=== PATIENT | female | born 1990 | race American Indian/Alaskan Native ===

== ENCOUNTER 2019-05-28 23:15 | Emergency (ER) | payer MEDICAID ==
[2019-05-28 23:39] VITALS: BP 130/85
[2019-05-29] MEDS ORDERED: ZOFRAN ODT PO ONE (02:14)
[2019-05-29] MEDS ORDERED: NORCO 5/325 PO ONE (02:14)
--- NOTE | 2019-05-29 02:14 | Emergency Department Report ---
ED General Adult HPI - General Chief complaint: Laceration/Recheck/Suture Stated complaint: INCISION WAS LEAKING PUS/PAIN FROM C SECTION Time Seen by Provider: 05/29/19 02:11 Source: patient Mode of arrival: Ambulatory Limitations: No Limitations - History of Present Illness Initial comments: Patient presents to emergency department with concern of infection versus section wound. Patient had a on the third of this month and states she's had some drainage from the wound. Patient denies fever but does endorse abdominal pain status post a procedure. Patient is out of her pain medication at home. -: Gradual Location: abdomen Severity scale (0 -10): 4 Quality: aching Consistency: constant Improves with: rest Worsens with: movement Associated Symptoms: denies other symptoms Treatments Prior to Arrival: none - Related Data Previous Rx's Medication Instructions Recorded Last Taken Type HYDROcodone/APAP 5-325 [[place] 1 each PO Q6HR PRN #12 tablet 05/29/19 Unknown Rx 5/325] Allergies Allergy/AdvReac Type Severity Reaction Status Date / Time No Known Allergies Allergy Verified 10/23/13 06:45 ED Review of Systems ROS: Stated complaint: INCISION WAS LEAKING PUS/PAIN FROM C SECTION Other details as noted in HPI Comment: All other systems reviewed and negative Constitutional: denies: chills, fever Eyes: denies: eye pain, eye discharge, vision change ENT: denies: ear pain, throat pain Respiratory: denies: cough, shortness of breath, wheezing Cardiovascular: denies: chest pain, palpitations Endocrine: no symptoms reported Gastrointestinal: denies: abdominal pain, nausea, diarrhea Genitourinary: denies: urgency, dysuria, discharge Musculoskeletal: denies: back pain, joint swelling, arthralgia Skin: denies: rash, lesions Neurological: denies: headache, weakness, paresthesias Psychiatric: denies: anxiety, depression Hematological/Lymphatic: denies: easy bleeding, easy bruising ED Past Medical Hx - Past Medical History Previous Medical History?: No - Surgical History Past Surgical History?: Yes Additional Surgical History: c section X 3 - Social History Smoking Status: Current Every Day Smoker Substance Use Type: None - Medications Home Medications: Home Medications Medication Instructions Recorded Confirmed Last Taken Type HYDROcodone/APAP 5-325 [[place] 1 each PO Q6HR PRN #12 tablet 09/14/19 Unknown Rx 5/325] ED Physical Exam - General Limitations: No Limitations General appearance: alert, in no apparent distress - Head Head exam: Present: atraumatic, normocephalic - Eye Eye exam: Present: normal appearance - ENT ENT exam: Present: mucous membranes moist - Neck Neck exam: Present: normal inspection - Respiratory Respiratory exam: Present: normal lung sounds bilaterally. Absent: respiratory distress - Cardiovascular Cardiovascular Exam: Present: regular rate, normal rhythm. Absent: systolic murmur, diastolic murmur, rubs, gallop - GI/Abdominal GI/Abdominal exam: Present: soft, normal bowel sounds, other (there is social wound appears to be healing without signs of infection). Absent: distended, tenderness - Extremities Exam Extremities exam: Present: normal inspection - Back Exam Back exam: Present: normal inspection - Neurological Exam Neurological exam: Present: alert, oriented X3 - Psychiatric Psychiatric exam: Present: normal affect, normal mood - Skin Skin exam: Present: warm, dry, intact, normal color. Absent: rash ED Course Vital Signs 05/28/19 05/29/19 23:36 02:09 Temperature 98.3 F Pulse Rate 63 Respiratory 18 18 Rate Blood Pressure 130/85 O2 Sat by Pulse 98 Oximetry ED Medical Decision Making - Medical Decision Making Discussed results with patient A shunt instructed to keep her follow-up appointment with her [facility] at [facility] on Friday Critical care attestation.: If time is entered above; I have spent that time in minutes in the direct care of this critically ill patient, excluding procedure time. ED Disposition Clinical Impression: Post-op pain Disposition: - TO HOME OR SELFCARE Is pt being admited?: No Does the pt Need Aspirin: No Condition: Stable Referrals: JORGE LUIS JEAN MD [Primary Care Provider] - 3-5 Days [facility] [Provider Group] - 3-5 Days Time of Disposition: 02:15
== END 2019-05-29 02:24 | disposition home or self-care (01) ==
LOC: ED 23:15
DX: T81.89XA Other complications of procedures, not elsewhere classified, initial encounter (principal); G89.18 Other acute postprocedural pain; F17.200 Nicotine dependence, unspecified, uncomplicated; Y92.89 Other specified places as the place of occurrence of the external cause
CPT/HCPCS: 99282